=== PATIENT | female | born 1965 | race Hispanic/Latino ===

== ENCOUNTER 2017-05-08 21:41 | Emergency (ER) | payer OTHER, SELFPAY ==
[2017-05-08] MEDS ORDERED: DEXAMETHASONE SOD PHOSPHATE 10MG/ML 1ML VIAL ONE (22:19)
[2017-05-08] MEDS ORDERED: SODIUM CHLORIDE 0.9% 1000ML 1,000 ML IV ONE (22:19)
[2017-05-08] MEDS ORDERED: KETOROLAC TROMETHAMINE 30MG/ML ONE (22:20)
[2017-05-08 22:24] LABS: BASOPHILS % (AUTO) 0.6 % (0.0-5.0); EOSINOPHILS % (AUTO) 4.2 % (0.0-8.0); HEMATOCRIT 42.7 % (36-48); LYMPHOCYTES % (AUTO) 26.2 % (21.0-51.0); MEAN CORPUSCULAR HEMOGLOBIN 32.1 pg (27.0-33.0); MEAN CORPUSCULAR HGB CONC 33.7 g/dL (32.0-36.0); MEAN CORPUSCULAR VOLUME 95.2 fL (79-99); MONOCYTES % (AUTO) 7.7 % (3.0-13.0); NEUTROPHILS % (AUTO) 61.3 % (40.0-77.0); PLATELET COUNT (AUTO) 253 K/uL (130-400); RED BLOOD CELL COUNT(AUTO) 4.49 MIL/uL (4.00-5.50); RED CELL DISTRIBUTION WIDTH 14.3 % (11.0-15.5); WHITE BLOOD COUNT (AUTO) 8.1 K/uL (4.8-10.8)
[2017-05-08 22:36] LABS: CREATININE 0.7 mg/dL (0.5-1.5); POTASSIUM 4.2 mmol/L (3.5-5.1)
[2017-05-08 22:37] LABS: RAPID GROUP A STREP NEGATIVE (NEGATIVE)
[2017-05-08] MEDS ORDERED: CEFTRIAXONE SODIUM 1 GM ONE (23:07)
== END 2017-05-08 23:48 | disposition home or self-care (01) ==
LOC: EDH 21:41
DX: J02.0 Streptococcal pharyngitis (principal); R50.81 Fever presenting with conditions classified elsewhere
CPT/HCPCS: 36415; 80048; 85025; 87804 ×2; 87880; 96361; 96374; 96375; 99284; J0696; J1100; J1885; J7030

== ENCOUNTER 2018-08-28 04:02 | Emergency (ER) | payer OTHER, SELFPAY ==
[2018-08-28] MEDS ORDERED: LIDOCAINE HCL 2% JELLY 5 ML ONE (04:18)
[2018-08-28] MEDS ORDERED: HYDROCORTISONE 25 MG SUPPOSITORY PR ONE (04:32)
== END 2018-08-28 04:48 | disposition home or self-care (01) ==
LOC: EDH 04:02
DX: K64.9 Unspecified hemorrhoids (principal); Z90.49 Acquired absence of other specified parts of digestive tract; Z87.891 Personal history of nicotine dependence; Z98.890 Other specified postprocedural states

== ENCOUNTER 2020-04-11 22:16 | Inpatient (IN) | payer OTHER, SELFPAY ==
[~2020-04-11] VITALS: Ht 160 cm; Wt 139.7 kg
[2020-04-11] MEDS ORDERED: SODIUM CHLORIDE 0.9% 1000ML 1,000 ML IV ONE (23:17)
[2020-04-11] MEDS ORDERED: ACETAMINOPHEN 325 MG TAB ONE (23:18)
[2020-04-11 23:41] LABS: BASOPHILS % (AUTO) 0.1 % (0.0-5.0); EOSINOPHILS % (AUTO) 0.1 % (0.0-8.0); HEMATOCRIT 42.2 % (36-48); LYMPHOCYTES % (AUTO) 12.6 % (21.0-51.0); MEAN CORPUSCULAR HEMOGLOBIN 31.7 pg (27.0-33.0); MEAN CORPUSCULAR HGB CONC 32.9 g/dL (32.0-36.0); MEAN CORPUSCULAR VOLUME 96.1 fL (79-99); MONOCYTES % (AUTO) 6.2 % (3.0-13.0); NEUTROPHILS % (AUTO) 80.7 % (40.0-77.0); PLATELET COUNT (AUTO) 181 K/uL (130-400); RED BLOOD CELL COUNT(AUTO) 4.39 MIL/uL (4.00-5.50); RED CELL DISTRIBUTION WIDTH 13.9 % (11.0-15.5); WHITE BLOOD COUNT (AUTO) 6.9 K/uL (4.8-10.8)
[2020-04-11] MEDS ORDERED: DEXAMETHASONE SOD PHOSPHATE 10MG/ML 1ML VIAL ONE (23:50)
[2020-04-11] MEDS ORDERED: ONDANSETRON HCL 4 MG/2 ML VIAL ONE (23:50)
[2020-04-11] MEDS ORDERED: AZITHROMYCIN 500MG+NS 250ML 250 ML IV ONE (23:50)
[2020-04-11] MEDS ORDERED: MORPHINE SULFATE 4 MG/1ML SYG ONE (23:51)
[2020-04-11] MEDS ORDERED: CEFTRIAXONE SODIUM 1 GM ONE (23:51)
[2020-04-11 23:53] LABS: INR 1.07 (0.85-1.15); PROTHROMBIN TIME 11.4 SEC (9.6-11.6)
[2020-04-11 23:55] LABS: PARTIAL THROMBOPLASTIN TIME 30.5 SEC (26.3-35.5)
[2020-04-12 00:02] LABS: B-TYPE NATRIURETIC PEPTIDE 25 pg/mL (0-100)
[2020-04-12 00:06] LABS: CREATININE 0.8 mg/dL (0.5-1.5); POTASSIUM 3.8 mmol/L (3.5-5.1)
[2020-04-12 00:12] LABS: ALBUMIN 3.4 g/dL (3.5-5.0); BILIRUBIN,TOTAL 0.3 mg/dL (0.2-1.0); TOTAL PROTEIN, SERUM 7.4 g/dL (6.0-8.3)
[2020-04-12 00:28] LABS: APPEARANCE,URINE Clear (CLEAR); BILIRUBIN,URINE Negative (NEGATIVE); COLOR,URINE Yellow (YELLOW); GLUCOSE, URINE (UA) Negative (NEGATIVE); KETONES,URINE Negative (NEGATIVE); LEUKOCYTE ESTERASE ,URINE Negative (NEGATIVE); NITRATE,URINE Negative (NEGATIVE); OCCULT BLOOD,URINE Trace (NEGATIVE); PH,URINE 7.5 (5.0-8.0); PROTEIN,URINE Negative (NEGATIVE)
[2020-04-12 00:47] LABS: BACTERIA,URINE Rare /HPF (None Seen); SQUAMOUS EPITHELIAL CELL,UR 0-2 /HPF (0-2); WBC,URINE 0-1 /HPF (0-1)
[2020-04-12] MEDS ORDERED: ONDANSETRON HCL 4 MG/2 ML VIAL IV PRN (01:15)
[2020-04-12] MEDS: DOXYCYCLINE 100MG+NS 250ML IV SCH ×2 (01:45→13:45)
[2020-04-12] MEDS: DEXAMETHASONE SOD PHOSPHATE 4 MG/ML 1ML VIAL IVP SCH (01:45)
[2020-04-12] MEDS: CEFTRIAXONE SODIUM 1 GM IVP SCH ×2 (01:45→13:45)
[2020-04-12] MEDS ORDERED: ERGOCALCIFEROL (VITAMIN D2) 50,000 UNIT CAPSULE PO ONE (01:45)
[2020-04-12] MEDS ORDERED: PHARMACY COMMUNICATION MISC SCH ×3 (01:45→14:15)
[2020-04-12] MEDS ORDERED: DOXYCYCLINE 100MG+NS 250ML 250 ML IV ONE ×3 (02:38→21:29)
[2020-04-12] MEDS ORDERED: ASCORBIC ACID 500 MG TAB ONE (08:40)
[2020-04-12] MEDS ORDERED: ZINC SULFATE 220 CAPSULE ONE (08:41)
[2020-04-12] MEDS ORDERED: ACETYLCYSTEINE 600 MG CAPSULE ONE (08:41)
[2020-04-12] MEDS ORDERED: FAMOTIDINE/PF 20 MG/2 ML VIAL IV ONE (08:41)
[2020-04-12] MEDS: FAMOTIDINE/PF 20 MG/2 ML VIAL IV SCH ×2 (09:00→21:41)
[2020-04-12] MEDS: ZINC SULFATE 220 CAPSULE PO SCH (09:00)
[2020-04-12] MEDS: ACETYLCYSTEINE 600 MG CAPSULE PO SCH ×2 (09:00→21:41)
[2020-04-12] MEDS: ASCORBIC ACID 500 MG TAB PO SCH (09:00)
[2020-04-12 09:01] LABS: BASOPHILS % (AUTO) 0.2 % (0.0-5.0); EOSINOPHILS % (AUTO) 1.7 % (0.0-8.0); HEMATOCRIT 44.8 % (36-48); LYMPHOCYTES % (AUTO) 10.9 % (21.0-51.0); MEAN CORPUSCULAR HEMOGLOBIN 31.5 pg (27.0-33.0); MEAN CORPUSCULAR HGB CONC 31.5 g/dL (32.0-36.0); MEAN CORPUSCULAR VOLUME 100.2 fL (79-99); MONOCYTES % (AUTO) 2.8 % (3.0-13.0); NEUTROPHILS % (AUTO) 84.1 % (40.0-77.0); PLATELET COUNT (AUTO) 191 K/uL (130-400); RED BLOOD CELL COUNT(AUTO) 4.47 MIL/uL (4.00-5.50); RED CELL DISTRIBUTION WIDTH 14.2 % (11.0-15.5)
[2020-04-12] MEDS ORDERED: ACETAMINOPHEN 325 MG TAB ONE (09:37)
[2020-04-12] MEDS ORDERED: SODIUM CHLORIDE 0.9% 50 ML IV ONE (14:20)
[2020-04-12] MEDS ORDERED: CEFTRIAXONE SODIUM 1 GM ONE (14:20)
[2020-04-12] MEDS ORDERED: COMPOUND IV REFRIGERATED 1 EACH IVSOLN MISC PRN (16:00)
[2020-04-12] MEDS ORDERED: REMDESIVIR (EUA) 520 200 MG in SODIUM CHLORIDE 0.9% 250 ML IV ONE (16:00)
[2020-04-12] MEDS ORDERED: SODIUM CHLORIDE 0.9% 500ML 500 ML IV ONE (18:42)
[2020-04-12] MEDS: ACETAMINOPHEN 325 MG TAB PO PRN (22:21)
[2020-04-12 22:30] VITALS: BP 127/67
[2020-04-12 23:57] VITALS: BP 138/75
[2020-04-13] MEDS: KETOROLAC TROMETHAMINE 15MG/ML IV SCH
[2020-04-13] MEDS ORDERED: KETOROLAC TROMETHAMINE 15MG/ML ONE (00:05)
[2020-04-13] MEDS: DEXAMETHASONE SOD PHOSPHATE 4 MG/ML 1ML VIAL IVP SCH (01:09)
[2020-04-13] MEDS: CEFTRIAXONE SODIUM 1 GM IVP SCH ×2 (01:09→13:23)
[2020-04-13] MEDS: DOXYCYCLINE 100MG+NS 250ML IV SCH (01:09)
[2020-04-13] MEDS: ACETAMINOPHEN 325 MG TAB PO PRN ×2 (03:40→09:31)
[2020-04-13 04:14] VITALS: BP 143/73
[2020-04-13] MEDS ORDERED: PHARMACY COMMUNICATION MISC SCH (06:00)
[2020-04-13 06:50] LABS: BASOPHILS % (AUTO) 0.1 % (0.0-5.0); EOSINOPHILS % (AUTO) 1.9 % (0.0-8.0); HEMATOCRIT 42.1 % (36-48); LYMPHOCYTES % (AUTO) 19.8 % (21.0-51.0); MEAN CORPUSCULAR HEMOGLOBIN 31.6 pg (27.0-33.0); MEAN CORPUSCULAR HGB CONC 31.8 g/dL (32.0-36.0); MEAN CORPUSCULAR VOLUME 99.3 fL (79-99); MONOCYTES % (AUTO) 4.1 % (3.0-13.0); PLATELET COUNT (AUTO) 188 K/uL (130-400); RED BLOOD CELL COUNT(AUTO) 4.24 MIL/uL (4.00-5.50); RED CELL DISTRIBUTION WIDTH 13.9 % (11.0-15.5); WHITE BLOOD COUNT (AUTO) 6.9 K/uL (4.8-10.8)
[2020-04-13 07:33] LABS: BILIRUBIN,TOTAL 0.2 mg/dL (0.2-1.0); CREATININE 0.6 mg/dL (0.5-1.5); CRP QUANTITATIVE 67.2 mg/L (0.00-9.0); POTASSIUM 4.4 mmol/L (3.5-5.1); TOTAL PROTEIN, SERUM 7.1 g/dL (6.0-8.3)
[2020-04-13] MEDS: ACETYLCYSTEINE 600 MG CAPSULE PO SCH ×2 (09:30→20:23)
[2020-04-13] MEDS: ZINC SULFATE 220 CAPSULE PO SCH (09:30)
[2020-04-13] MEDS: ASCORBIC ACID 500 MG TAB PO SCH (09:31)
[2020-04-13] MEDS: FAMOTIDINE/PF 20 MG/2 ML VIAL IV SCH ×2 (09:31→20:23)
[2020-04-13 10:28] VITALS: BP 130/89
[2020-04-13 13:06] VITALS: BP 117/74
[2020-04-13] MEDS: DOXYCYCLINE 100MG+NS 250ML 250 ML IV SCH (13:49)
[2020-04-13] MEDS ORDERED: HYDROCODONE/ACETAMINOPHEN 5/325 MG TAB PO ONE (15:25)
[2020-04-13] MEDS ORDERED: TRAMADOL HCL 50 MG TABLET PO ONE (16:00)
[2020-04-13] MEDS: REMDESIVIR (EUA) 520 100 MG in SODIUM CHLORIDE 0.9% 250 ML IV SCH (16:52)
[2020-04-13 18:17] VITALS: BP 121/86
[2020-04-13 19:50] VITALS: BP 110/63
[2020-04-13 23:39] VITALS: BP 124/77
[2020-04-14] MEDS: KETOROLAC TROMETHAMINE 15MG/ML IV SCH
[2020-04-14] MEDS: CEFTRIAXONE SODIUM 1 GM IVP SCH ×2 (01:20→13:10)
[2020-04-14] MEDS: DEXAMETHASONE SOD PHOSPHATE 4 MG/ML 1ML VIAL IVP SCH (01:20)
[2020-04-14] MEDS: DOXYCYCLINE 100MG+NS 250ML 250 ML IV SCH ×2 (02:00→13:11)
[2020-04-14] MEDS: ACETAMINOPHEN 325 MG TAB PO PRN ×2 (03:51→09:02)
[2020-04-14 03:53] VITALS: BP 141/80
[2020-04-14 06:31] LABS: BASOPHILS % (AUTO) 0.1 % (0.0-5.0); EOSINOPHILS % (AUTO) 1.7 % (0.0-8.0); LYMPHOCYTES % (AUTO) 19.9 % (21.0-51.0); MEAN CORPUSCULAR HEMOGLOBIN 31.3 pg (27.0-33.0); MEAN CORPUSCULAR HGB CONC 31.4 g/dL (32.0-36.0); MEAN CORPUSCULAR VOLUME 99.5 fL (79-99); MONOCYTES % (AUTO) 3.3 % (3.0-13.0); NEUTROPHILS % (AUTO) 74.6 % (40.0-77.0); PLATELET COUNT (AUTO) 189 K/uL (130-400); RED BLOOD CELL COUNT(AUTO) 4.22 MIL/uL (4.00-5.50); WHITE BLOOD COUNT (AUTO) 6.9 K/uL (4.8-10.8)
[2020-04-14 06:51] LABS: BILIRUBIN,TOTAL 0.2 mg/dL (0.2-1.0); CREATININE 0.7 mg/dL (0.5-1.5); CRP QUANTITATIVE 22.6 mg/L (0.00-9.0); POTASSIUM 4.5 mmol/L (3.5-5.1); TOTAL PROTEIN, SERUM 7.1 g/dL (6.0-8.3)
[2020-04-14 07:20] VITALS: BP 121/72
[2020-04-14] MEDS: ZINC SULFATE 220 CAPSULE PO SCH (09:02)
[2020-04-14] MEDS: FAMOTIDINE/PF 20 MG/2 ML VIAL IV SCH ×2 (09:02→19:59)
[2020-04-14] MEDS: ACETYLCYSTEINE 600 MG CAPSULE PO SCH ×2 (09:02→20:00)
[2020-04-14] MEDS: ASCORBIC ACID 500 MG TAB PO SCH (09:03)
[2020-04-14 11:05] VITALS: BP 108/62
[2020-04-14] MEDS: ENOXAPARIN SODIUM 30 MG/0.3 ML SQ SCH (13:12)
[2020-04-14 15:24] VITALS: BP 114/62
[2020-04-14] MEDS: REMDESIVIR (EUA) 520 100 MG in SODIUM CHLORIDE 0.9% 250 ML IV SCH (16:00)
[2020-04-14 22:35] VITALS: BP 132/69
[2020-04-15] VITALS (7 sets, daily range): BP systolic 124–134; BP diastolic 51–85
[2020-04-15] MEDS: CEFTRIAXONE SODIUM 1 GM IVP SCH ×2 (01:56→13:54)
[2020-04-15] MEDS: DEXAMETHASONE SOD PHOSPHATE 4 MG/ML 1ML VIAL IVP SCH (01:56)
[2020-04-15] MEDS: DOXYCYCLINE 100MG+NS 250ML 250 ML IV SCH ×2 (01:56→13:54)
[2020-04-15] MEDS: ACETAMINOPHEN 325 MG TAB PO PRN ×2 (05:03→11:35)
[2020-04-15 06:26] LABS: BILIRUBIN,TOTAL 0.3 mg/dL (0.2-1.0); CREATININE 0.8 mg/dL (0.5-1.5); CRP QUANTITATIVE 13.1 mg/L (0.00-9.0); POTASSIUM 3.4 mmol/L (3.5-5.1); TOTAL PROTEIN, SERUM 6.6 g/dL (6.0-8.3)
[2020-04-15] MEDS ORDERED: POTASSIUM CHLORIDE 10MEQ/100ML 100 ML IV PRN (09:00)
[2020-04-15] MEDS ORDERED: LIDOCAINE HCL-MPF 1% 2ML VIAL IV PRN (09:00)
[2020-04-15] MEDS ORDERED: POTASSIUM CHLORIDE 10% ELIXIR 20 MEQ/15 ML UDCUP PO PRN (09:00)
[2020-04-15] MEDS: ACETYLCYSTEINE 600 MG CAPSULE PO SCH ×2 (09:25→19:56)
[2020-04-15] MEDS: ZINC SULFATE 220 CAPSULE PO SCH (09:26)
[2020-04-15] MEDS: ASCORBIC ACID 500 MG TAB PO SCH (09:26)
[2020-04-15] MEDS: FAMOTIDINE/PF 20 MG/2 ML VIAL IV SCH ×2 (09:26→19:56)
[2020-04-15] MEDS: GUAIFENESIN-DM 200/20 MG 10 ML PO PRN ×2 (09:27→16:37)
[2020-04-15] MEDS: ENOXAPARIN SODIUM 30 MG/0.3 ML SQ SCH (09:27)
[2020-04-15] MEDS: POTASSIUM CHLORIDE 20 MEQ ERTAB PO PRN (11:36)
[2020-04-15] MEDS: REMDESIVIR (EUA) 520 100 MG in SODIUM CHLORIDE 0.9% 250 ML IV SCH (16:25)
[2020-04-16] MEDS: DEXAMETHASONE SOD PHOSPHATE 4 MG/ML 1ML VIAL IVP SCH (01:02)
[2020-04-16] MEDS: CEFTRIAXONE SODIUM 1 GM IVP SCH ×2 (01:02→14:05)
[2020-04-16] MEDS: DOXYCYCLINE 100MG+NS 250ML 250 ML IV SCH ×2 (01:02→14:05)
[2020-04-16 03:46] VITALS: BP 128/76
[2020-04-16 05:18] LABS: BASOPHILS % (AUTO) 0.1 % (0.0-5.0); EOSINOPHILS % (AUTO) 0.1 % (0.0-8.0); HEMATOCRIT 43.9 % (36-48); MEAN CORPUSCULAR HEMOGLOBIN 31.3 pg (27.0-33.0); MEAN CORPUSCULAR HGB CONC 32.3 g/dL (32.0-36.0); MEAN CORPUSCULAR VOLUME 96.7 fL (79-99); MONOCYTES % (AUTO) 5.4 % (3.0-13.0); NEUTROPHILS % (AUTO) 72.8 % (40.0-77.0); PLATELET COUNT (AUTO) 226 K/uL (130-400); RED BLOOD CELL COUNT(AUTO) 4.54 MIL/uL (4.00-5.50); RED CELL DISTRIBUTION WIDTH 13.7 % (11.0-15.5); WHITE BLOOD COUNT (AUTO) 8.1 K/uL (4.8-10.8)
[2020-04-16 05:41] LABS: CARBON DIOXIDE 28 mmol/L (21-32); CHLORIDE 102 mmol/L (101-111); CREATININE 0.7 mg/dL (0.5-1.5); GLOMERULAR FILTR. RATE CALC 93 mL/min (>60); GLUCOSE,RANDOM 144 mg/dL (70-105); POTASSIUM 3.8 mmol/L (3.5-5.1); SODIUM SERUM 141 mmol/L (136-145); UREA NITROGEN, BLOOD 11 mg/dL (7-18)
[2020-04-16] MEDS: ACETAMINOPHEN 325 MG TAB PO PRN (05:56)
[2020-04-16 07:54] LABS: ALBUMIN 3.4 g/dL (3.5-5.0); BILIRUBIN,DIRECT 0.1 mg/dL (0.0-0.3); BILIRUBIN,TOTAL 0.3 mg/dL (0.2-1.0); TOTAL PROTEIN, SERUM 7.6 g/dL (6.0-8.3)
[2020-04-16 08:02] VITALS: BP 132/76
[2020-04-16] MEDS: ASCORBIC ACID 500 MG TAB PO SCH (08:59)
[2020-04-16] MEDS: ZINC SULFATE 220 CAPSULE PO SCH (08:59)
[2020-04-16] MEDS: FAMOTIDINE/PF 20 MG/2 ML VIAL IV SCH ×2 (08:59→20:01)
[2020-04-16] MEDS: ACETYLCYSTEINE 600 MG CAPSULE PO SCH ×2 (08:59→20:01)
[2020-04-16] MEDS: ENOXAPARIN SODIUM 30 MG/0.3 ML SQ SCH (09:00)
[2020-04-16 09:52] LABS: CREATINE KINASE, TOTAL 77 U/L (21-232); MYOGLOBIN 45 ng/mL (10-92); THYROID STIMULATING HORMONE 1.68 uIU/mL (0.36-3.74); TROPONIN I < 0.04 ng/mL (0.00-0.06)
[2020-04-16 12:00] VITALS: BP 127/73
[2020-04-16] MEDS: GUAIFENESIN-DM 200/20 MG 10 ML PO PRN (14:16)
[2020-04-16] MEDS: REMDESIVIR (EUA) 520 100 MG in SODIUM CHLORIDE 0.9% 250 ML IV SCH (15:58)
[2020-04-16 16:00] VITALS: BP 145/92
[2020-04-16 21:57] VITALS: BP 133/84
[2020-04-17 00:08] VITALS: BP 133/86
[2020-04-17] MEDS: DEXAMETHASONE SOD PHOSPHATE 4 MG/ML 1ML VIAL IVP SCH (01:52)
[2020-04-17] MEDS: DOXYCYCLINE 100MG+NS 250ML 250 ML IV SCH ×2 (01:52→13:26)
[2020-04-17] MEDS: CEFTRIAXONE SODIUM 1 GM IVP SCH ×2 (01:52→13:26)
[2020-04-17 03:50] VITALS: BP 121/69
[2020-04-17 05:03] LABS: BASOPHILS % (AUTO) 0.2 % (0.0-5.0); EOSINOPHILS % (AUTO) 1.1 % (0.0-8.0); HEMATOCRIT 41.9 % (36-48); LYMPHOCYTES % (AUTO) 33.8 % (21.0-51.0); MEAN CORPUSCULAR HEMOGLOBIN 31.5 pg (27.0-33.0); MEAN CORPUSCULAR HGB CONC 33.2 g/dL (32.0-36.0); NEUTROPHILS % (AUTO) 56.4 % (40.0-77.0); PLATELET COUNT (AUTO) 243 K/uL (130-400); RED BLOOD CELL COUNT(AUTO) 4.41 MIL/uL (4.00-5.50); RED CELL DISTRIBUTION WIDTH 13.5 % (11.0-15.5); WHITE BLOOD COUNT (AUTO) 8.5 K/uL (4.8-10.8)
[2020-04-17 05:17] LABS: CREATININE 0.6 mg/dL (0.5-1.5); POTASSIUM 3.6 mmol/L (3.5-5.1)
[2020-04-17 08:00] VITALS: BP 118/73
[2020-04-17] MEDS: ZINC SULFATE 220 CAPSULE PO SCH (08:33)
[2020-04-17] MEDS: ASCORBIC ACID 500 MG TAB PO SCH (08:33)
[2020-04-17] MEDS: GUAIFENESIN-DM 200/20 MG 10 ML PO PRN ×2 (08:34→13:30)
[2020-04-17] MEDS: ACETAMINOPHEN 325 MG TAB PO PRN (08:34)
[2020-04-17] MEDS: ACETYLCYSTEINE 600 MG CAPSULE PO SCH (08:34)
[2020-04-17] MEDS: ENOXAPARIN SODIUM 30 MG/0.3 ML SQ SCH (08:35)
[2020-04-17] MEDS: FAMOTIDINE/PF 20 MG/2 ML VIAL IV SCH (08:35)
[2020-04-17] MEDS: POTASSIUM CHLORIDE 20 MEQ ERTAB PO PRN ×2 (08:35→11:30)
[2020-04-17 10:01] VITALS: BP 118/73
[2020-04-17 17:28] VITALS: BP 126/73
[2020-04-17] MEDS ORDERED: APIX2.5T PO (17:40)
[2020-04-17] MEDS ORDERED: DEXA6TAB PO (17:40)
== END 2020-04-17 18:35 | disposition home or self-care (01) | DRG 177 ==
LOC: EDH 22:16 → EDHIP 22:17 → 4BH 04-12 21:40
PROVIDERS: ADMIT Hospitalist; ATTEND Hospitalist
PROC: XW13325 Transfusion of Convalescent Plasma (Nonautologous) into Peripheral Vein, Percutaneous Approach, New Technology Group 5 (ICD-10-PCS; principal; 2020-04-12)
PROC: XW033E5 Introduction of Remdesivir Anti-infective into Peripheral Vein, Percutaneous Approach, New Technology Group 5 (ICD-10-PCS; 2020-04-12)
DX: U07.1 COVID-19 (principal); J12.82 Pneumonia due to coronavirus disease 2019; J96.00 Acute respiratory failure, unspecified whether with hypoxia or hypercapnia; D68.59 Other primary thrombophilia; Z68.43 Body mass index [BMI] 50.0-59.9, adult; E66.01 Morbid (severe) obesity due to excess calories; R74.8 Abnormal levels of other serum enzymes; R00.1 Bradycardia, unspecified; Z90.49 Acquired absence of other specified parts of digestive tract
CPT/HCPCS: 36415; 71045; 80048; 80053; 80076; 81001; 82550; 82728; 82948; 83605; 83615; 83874; 83880; 84145; 84443; 84484; 85025; 85378; 85610; 85730; 86140; 86900; 86901; 86927; 87040; 87088; 87426; 87804; 93005; G0378; J0456; J0696; J1100; J1650; J1885; J2270; J2405; J3490; J7030; J7040; J7050

== ENCOUNTER 2020-04-24 11:37 | Inpatient (IN) | payer OTHER, SELFPAY ==
[~2020-04-24] VITALS: Ht 160 cm; Wt 138.3 kg
[~2020-04-24 11:37] MED LIST: APIX2.5T PO; DEXA6TAB PO
[2020-04-24 12:21] LABS: ABG BASE EXCESS 0.5 mmol/L (-2.0-3.0); ABG OXYGEN SATURATION 91.3 % (95.0-99.0); ABG PCO2 40 mmHg (32-45)
[2020-04-24] MEDS ORDERED: CEFTRIAXONE SODIUM 1 GM ONE (12:52)
[2020-04-24] MEDS ORDERED: DEXAMETHASONE SOD PHOSPHATE 4 MG/ML 5ML VIAL ONE ×2 (12:52→16:15)
[2020-04-24] MEDS ORDERED: AZITHROMYCIN 250 MG TABLET PO ONE (12:53)
[2020-04-24] MEDS ORDERED: ACETAMINOPHEN-CODEINE 300/30MG TAB ONE (12:53)
[2020-04-24 13:00] LABS: BASOPHILS % (AUTO) 0.2 % (0.0-5.0); EOSINOPHILS % (AUTO) 0.2 % (0.0-8.0); HEMATOCRIT 44.4 % (36-48); MEAN CORPUSCULAR HEMOGLOBIN 31.1 pg (27.0-33.0); MEAN CORPUSCULAR HGB CONC 33.1 g/dL (32.0-36.0); MEAN CORPUSCULAR VOLUME 93.9 fL (79-99); MONOCYTES % (AUTO) 5.6 % (3.0-13.0); NEUTROPHILS % (AUTO) 79.7 % (40.0-77.0); PLATELET COUNT (AUTO) 294 K/uL (130-400); RED BLOOD CELL COUNT(AUTO) 4.73 MIL/uL (4.00-5.50); RED CELL DISTRIBUTION WIDTH 13.8 % (11.0-15.5); WHITE BLOOD COUNT (AUTO) 9.4 K/uL (4.8-10.8)
[2020-04-24 13:14] LABS: INR 1.03 (0.85-1.15)
[2020-04-24 13:15] LABS: BILIRUBIN,TOTAL 0.3 mg/dL (0.2-1.0); CREATININE 0.7 mg/dL (0.5-1.5); POTASSIUM 4.2 mmol/L (3.5-5.1); TOTAL PROTEIN, SERUM 6.7 g/dL (6.0-8.3)
[2020-04-24 13:16] LABS: PARTIAL THROMBOPLASTIN TIME 25.8 SEC (26.3-35.5)
[2020-04-24 13:27] LABS: B-TYPE NATRIURETIC PEPTIDE 23 pg/mL (0-100)
[2020-04-24] MEDS ORDERED: LACTULOSE 20 GM/30 ML UDCUP PO PRN (15:15)
[2020-04-24] MEDS ORDERED: ALBUTEROL INHALER 90MCG/INH IH PRN (15:15)
[2020-04-24] MEDS ORDERED: ACETAMINOPHEN 325 MG TAB PO PRN ×2 (15:15)
[2020-04-24] MEDS ORDERED: ERGOCALCIFEROL (VITAMIN D2) 50,000 UNIT CAPSULE PO ONE (15:15)
[2020-04-24] MEDS ORDERED: ONDANSETRON HCL 4 MG/2 ML VIAL IV PRN (15:15)
[2020-04-24] MEDS ORDERED: DEXAMETHASONE SOD PHOSPHATE 4 MG/ML 1ML VIAL IVP SCH (15:15)
[2020-04-24 17:13] LABS: APPEARANCE,URINE Clear (CLEAR); BILIRUBIN,URINE Negative (NEGATIVE); COLOR,URINE Yellow (YELLOW); GLUCOSE, URINE (UA) Negative (NEGATIVE); KETONES,URINE Negative (NEGATIVE); LEUKOCYTE ESTERASE ,URINE Negative (NEGATIVE); NITRATE,URINE Negative (NEGATIVE); OCCULT BLOOD,URINE Negative (NEGATIVE); PH,URINE 6.5 (5.0-8.0); PROTEIN,URINE Negative (NEGATIVE); UROBILINOGEN,URINE 0.2 mg/dL (0.2-1.0)
[2020-04-24] MEDS ORDERED: DEXTROSE 50%-WATER 50 ML DISP.SYRIN IV PRN (19:45)
[2020-04-24] MEDS ORDERED: GLUCAGON 1MG KIT 1 MG ML IM PRN (19:45)
[2020-04-24] MEDS ORDERED: METHYLPREDNISOLONE SOD SUCC 125MG/2ML VIAL IVP SCH (19:45)
[2020-04-24] MEDS ORDERED: FAMOTIDINE 20MG TAB 20 MG TAB ONE (20:52)
[2020-04-24] MEDS ORDERED: METHYLPREDNISOLONE SOD SUCC 125MG/2ML VIAL ONE (20:52)
[2020-04-24] MEDS ORDERED: FAMOTIDINE 20MG TAB 20 MG TAB PO SCH (21:00)
[2020-04-24] MEDS ORDERED: INSULIN HUMULIN R 100 UNIT/ML 3ML ONE (21:12)
[2020-04-25 00:01] VITALS: BP 128/91
[2020-04-25 04:12] VITALS: BP 108/84
[2020-04-25 05:27] LABS: HEMATOCRIT 45.4 % (36-48); LYMPHOCYTES % (AUTO) 16.9 % (21.0-51.0); MEAN CORPUSCULAR HEMOGLOBIN 30.7 pg (27.0-33.0); MEAN CORPUSCULAR HGB CONC 31.7 g/dL (32.0-36.0); MEAN CORPUSCULAR VOLUME 96.8 fL (79-99); MONOCYTES % (AUTO) 1.9 % (3.0-13.0); PLATELET COUNT (AUTO) 305 K/uL (130-400); RED BLOOD CELL COUNT(AUTO) 4.69 MIL/uL (4.00-5.50); RED CELL DISTRIBUTION WIDTH 13.8 % (11.0-15.5); WHITE BLOOD COUNT (AUTO) 5.8 K/uL (4.8-10.8)
[2020-04-25 06:01] LABS: CREATININE 0.6 mg/dL (0.5-1.5); POTASSIUM 4.6 mmol/L (3.5-5.1)
[2020-04-25] MEDS: INSULIN HUMULIN R 100 UNIT/ML 3ML SQ SCH ×2 (06:07→12:15)
[2020-04-25 08:00] VITALS: BP 126/77
[2020-04-25] MEDS ORDERED: ZINC SULFATE 220 CAPSULE PO SCH (09:00)
[2020-04-25] MEDS ORDERED: ENOXAPARIN SODIUM 40 MG/0.4 ML SYRINGE SQ SCH (09:00)
[2020-04-25] MEDS ORDERED: ASCORBIC ACID 500 MG TAB PO SCH (09:00)
[2020-04-25 11:00] VITALS: BP 112/72
[2020-04-25] MEDS ORDERED: APIX2.5T PO (12:40)
== END 2020-04-25 00:30 | disposition home or self-care (01) | DRG 178 ==
LOC: EDH 11:37 → EDHIP 11:38 → 2AH 22:26
PROVIDERS: ADMIT Hospitalist; ATTEND Hospitalist
DX: U07.1 COVID-19 (principal); Z68.43 Body mass index [BMI] 50.0-59.9, adult; R06.03 Acute respiratory distress; R09.02 Hypoxemia; E66.01 Morbid (severe) obesity due to excess calories; E66.9 Obesity, unspecified; Z83.3 Family history of diabetes mellitus; Z82.49 Family history of ischemic heart disease and other diseases of the circulatory system; Z86.16 Personal history of COVID-19; Z87.01 Personal history of pneumonia (recurrent); Z90.49 Acquired absence of other specified parts of digestive tract
CPT/HCPCS: 36415; 36600; 71045; 80048; 80053; 81003; 82550; 82803; 82948; 83605; 83880; 84145; 84484; 85025; 85378; 85610; 85730; 87040; 87426; 87804; 87880; 93005; G0378; J0696; J1100; J1650; J1815; J2930; U0003

== ENCOUNTER → 2020-09-16 | Emergency (ER) | payer OTHER ==
[~2020-09-16] VITALS: Ht 160 cm; Wt 154.2 kg
[~2020-09-16] MED LIST changes: +IBUP-2070 PO; +KETOROLAC 30MG VIAL (30MG/ML) IM ONE; +MECL-160 PO; +PSEU120T62 PO
[2020-09-16 23:56] VITALS: BP 136/69
== END | disposition home or self-care (01) ==
LOC: EDH 21:30
DX: H66.92 Otitis media, unspecified, left ear (principal); E66.9 Obesity, unspecified; Z79.01 Long term (current) use of anticoagulants; Z98.890 Other specified postprocedural states; Z90.49 Acquired absence of other specified parts of digestive tract; Z68.44 Body mass index [BMI] 60.0-69.9, adult
CPT/HCPCS: 96372; 99283; J1885

== ENCOUNTER 2022-01-13 16:36 | Inpatient (IN) | payer OTHER ==
[~2022-01-13] VITALS: Ht 160 cm; Wt 138.5 kg
[~2022-01-13 16:36] MED LIST changes: -KETOROLAC 30MG VIAL (30MG/ML) IM ONE; +SULF1TAB42 PO; +TRAM50TA4 PO
[2022-01-13 16:57] LABS: BASOPHILS % (AUTO) 0.5 % (0.0-5.0); EOSINOPHILS % (AUTO) 2.7 % (0.0-8.0); HEMATOCRIT 42.3 % (36-48); LYMPHOCYTES % (AUTO) 19.6 % (21.0-51.0); MEAN CORPUSCULAR HEMOGLOBIN 31.4 pg (27.0-33.0); MEAN CORPUSCULAR HGB CONC 32.9 g/dL (32.0-36.0); MEAN CORPUSCULAR VOLUME 95.7 fL (79-99); MONOCYTES % (AUTO) 5.8 % (3.0-13.0); NEUTROPHILS % (AUTO) 71.3 % (40.0-77.0); PLATELET COUNT (AUTO) 245 K/uL (130-400); RED BLOOD CELL COUNT(AUTO) 4.42 MIL/uL (4.00-5.50); RED CELL DISTRIBUTION WIDTH 13.3 % (11.0-15.5); WHITE BLOOD COUNT (AUTO) 7.9 K/uL (4.8-10.8)
[2022-01-13 17:06] LABS: CREATININE 0.8 mg/dL (0.5-1.5); POTASSIUM 4.1 mmol/L (3.5-5.1)
[2022-01-13 17:13] LABS: ALBUMIN 3.8 g/dL (3.5-5.0); TOTAL PROTEIN, SERUM 7.6 g/dL (6.0-8.3)
[2022-01-13 19:23] LABS: APPEARANCE,URINE CLEAR (CLEAR); BILIRUBIN,URINE NEGATIVE (NEGATIVE); COLOR,URINE COLORLESS (YELLOW); GLUCOSE, URINE (UA) NEGATIVE (NEGATIVE); KETONES,URINE NEGATIVE (NEGATIVE); LEUKOCYTE ESTERASE ,URINE 75 Leu/uL (NEGATIVE); NITRATE,URINE NEGATIVE (NEGATIVE); OCCULT BLOOD,URINE LARGE (NEGATIVE); PROTEIN,URINE 10 mg/dL (NEGATIVE); UROBILINOGEN,URINE 0.2 mg/dL (0.2-1.0)
[2022-01-13] MEDS ORDERED: TAMSULOSIN HCL 0.4 MG CAP.ER.24H ONE (19:30)
[2022-01-13] MEDS ORDERED: ONDANSETRON 4MG INJ ONE (19:30)
[2022-01-13] MEDS ORDERED: KETOROLAC 30MG VIAL (30MG/ML) ONE (19:30)
[2022-01-13 19:39] LABS: BACTERIA,URINE MOD /HPF (None Seen); MUCUS,URINE FEW LPF (None Seen); SQUAMOUS EPITHELIAL CELL,UR RARE /HPF (0-2)
[2022-01-13] MEDS ORDERED: DiphenhydrAMINE HCL 50 MG/ML VIAL IV PRN (20:00)
[2022-01-13] MEDS ORDERED: KETOROLAC 30MG VIAL (30MG/ML) IVP ONE (20:00)
[2022-01-13] MEDS ORDERED: ONDANSETRON 4MG INJ IV PRN (20:00)
[2022-01-13] MEDS ORDERED: HYDROMORPHONE 1 MG INJ IV PRN (20:00)
[2022-01-13] MEDS ORDERED: LACTULOSE 20 GM/30 ML UDCUP PO PRN (20:00)
[2022-01-13] MEDS ORDERED: TAMSULOSIN HCL 0.4 MG CAP.ER.24H PO SCH (20:00)
[2022-01-13] MEDS ORDERED: ONDANSETRON 4MG INJ IVP ONE (20:00)
[2022-01-13] MEDS ORDERED: MAG/ALUM/SIMETH 30 ML UDCUP PO PRN (20:00)
[2022-01-13] MEDS ORDERED: ACETAMINOPHEN 325 MG TAB PO PRN (20:00)
[2022-01-13] MEDS ORDERED: HYDROCODONE/ACETAMINOPHEN 5/325 MG TAB PO PRN (20:00)
[2022-01-13] MEDS: 0.9%NACL 1000ML 1,000 ML IV SCH (20:09)
[2022-01-13] MEDS: FAMOTIDINE 20MG VIAL IV SCH (20:10)
[2022-01-13] MEDS: CEFTRIAXONE 1G VIAL IV SCH (20:12)
[2022-01-13 22:05] VITALS: BP 127/91
[2022-01-14 03:36] VITALS: BP 119/70
[2022-01-14] MEDS ORDERED: HYDROMORPHONE 0.5 MG SYG (0.5MG/0.5ML) ONE (04:15)
[2022-01-14] MEDS: 0.9%NACL 1000ML 1,000 ML IV SCH (04:16)
[2022-01-14] MEDS ORDERED: HYDROMORPHONE 0.5 MG SYG (0.5MG/0.5ML) IVP PRN (04:30)
[2022-01-14 05:18] LABS: HEMATOCRIT 39.7 % (36-48); MEAN CORPUSCULAR HEMOGLOBIN 31.8 pg (27.0-33.0); MEAN CORPUSCULAR VOLUME 96.4 fL (79-99); RED BLOOD CELL COUNT(AUTO) 4.12 MIL/uL (4.00-5.50); RED CELL DISTRIBUTION WIDTH 13.5 % (11.0-15.5)
[2022-01-14 05:31] LABS: CREATININE 0.8 mg/dL (0.5-1.5); POTASSIUM 3.5 mmol/L (3.5-5.1)
[2022-01-14 07:00] VITALS: BP 145/75
[2022-01-14] MEDS: FAMOTIDINE 20MG VIAL IV SCH ×2 (09:03→20:45)
[2022-01-14] MEDS: TAMSULOSIN HCL 0.4 MG CAP.ER.24H PO SCH (09:03)
[2022-01-14] MEDS: KETOROLAC 15MG/ML VIAL (15MG/ML) IV PRN (09:14)
[2022-01-14 12:00] VITALS: BP 135/74
[2022-01-14] MEDS ORDERED: MORPHINE 2 MG SYG IVP PRN (12:30)
[2022-01-14] MEDS ORDERED: IOHEXOL 350 MG/ML 100ML INFUS..BTL IV ONE (14:31)
[2022-01-14 16:00] VITALS: BP 135/77
[2022-01-14] MEDS ORDERED: NS-20 MEQ KCL 1000ML 1,000 ML IV ONE (20:28)
[2022-01-14] MEDS ORDERED: POTASSIUM CHLORIDE 20MEQ/10ML 0 MEQ in 0.9%NACL 1000ML 1,000 ML IV SCH ×4 (20:30)
[2022-01-14] MEDS ORDERED: POTASSIUM CHLORIDE 20MEQ/100ML 100 ML IV PRN ×2 (20:30)
[2022-01-14] MEDS ORDERED: POTASSIUM CHLORIDE 10% ELIXIR 20 MEQ/15 ML UDCUP PO PRN (20:30)
[2022-01-14] MEDS ORDERED: LIDOCAINE HCL-MPF 1% 2ML VIAL IV PRN ×2 (20:30)
[2022-01-14] MEDS ORDERED: KCL 20 MEQ ERTAB PO PRN (20:30)
[2022-01-14 20:31] VITALS: BP 117/80
[2022-01-14] MEDS: ACETAMINOPHEN 325 MG TAB PO PRN (20:45)
[2022-01-14] MEDS: CEFTRIAXONE 1G VIAL IV SCH (20:45)
[2022-01-14] MEDS ORDERED: PHARMACY COMMUNICATION MISC SCH (22:30)
[2022-01-14 23:40] VITALS: BP 113/55
[2022-01-15] MEDS: KETOROLAC 15MG/ML VIAL (15MG/ML) IV PRN ×2 (00:07→16:58)
[2022-01-15 03:34] VITALS: BP 113/65
[2022-01-15] MEDS ORDERED: NS-20 MEQ KCL 1000ML 1,000 ML IV ONE (04:50)
[2022-01-15 05:08] LABS: BASOPHILS % (AUTO) 0.5 % (0.0-5.0); EOSINOPHILS % (AUTO) 2.3 % (0.0-8.0); HEMATOCRIT 39.3 % (36-48); LYMPHOCYTES % (AUTO) 18.5 % (21.0-51.0); MEAN CORPUSCULAR HEMOGLOBIN 31.7 pg (27.0-33.0); MEAN CORPUSCULAR HGB CONC 32.1 g/dL (32.0-36.0); MEAN CORPUSCULAR VOLUME 98.7 fL (79-99); MONOCYTES % (AUTO) 7.8 % (3.0-13.0); NEUTROPHILS % (AUTO) 70.8 % (40.0-77.0); PLATELET COUNT (AUTO) 200 K/uL (130-400); RED BLOOD CELL COUNT(AUTO) 3.98 MIL/uL (4.00-5.50); RED CELL DISTRIBUTION WIDTH 13.6 % (11.0-15.5); WHITE BLOOD COUNT (AUTO) 7.7 K/uL (4.8-10.8)
[2022-01-15 05:20] LABS: CREATININE 0.8 mg/dL (0.5-1.5); CRP QUANTITATIVE 74.6 mg/L (0.00-9.0); POTASSIUM 4.2 mmol/L (3.5-5.1)
[2022-01-15 07:00] VITALS: BP 124/60
[2022-01-15] MEDS: TAMSULOSIN HCL 0.4 MG CAP.ER.24H PO SCH (10:45)
[2022-01-15] MEDS: FAMOTIDINE 20MG VIAL IV SCH ×2 (10:45→20:44)
[2022-01-15 12:29] VITALS: BP 144/70
[2022-01-15 16:00] VITALS: BP 140/35
[2022-01-15] MEDS: POTASSIUM CHLORIDE 20MEQ/10ML 20 MEQ in 0.9%NACL 1000ML 1,000 ML IV SCH (19:17)
[2022-01-15 20:01] VITALS: BP 138/69
[2022-01-15] MEDS: CEFTRIAXONE 1G VIAL IV SCH (20:44)
[2022-01-16 00:06] VITALS: BP 139/73
[2022-01-16 03:57] VITALS: BP 146/84
[2022-01-16] MEDS: POTASSIUM CHLORIDE 20MEQ/10ML 20 MEQ in 0.9%NACL 1000ML 1,000 ML IV SCH (06:06)
[2022-01-16 07:15] VITALS: BP 144/79
[2022-01-16 08:14] LABS: BASOPHILS % (AUTO) 0.7 % (0.0-5.0); EOSINOPHILS % (AUTO) 4.6 % (0.0-8.0); HEMATOCRIT 37.7 % (36-48); LYMPHOCYTES % (AUTO) 27.7 % (21.0-51.0); MEAN CORPUSCULAR HEMOGLOBIN 31.5 pg (27.0-33.0); MEAN CORPUSCULAR HGB CONC 32.4 g/dL (32.0-36.0); MEAN CORPUSCULAR VOLUME 97.4 fL (79-99); MONOCYTES % (AUTO) 9.8 % (3.0-13.0); PLATELET COUNT (AUTO) 199 K/uL (130-400); RED BLOOD CELL COUNT(AUTO) 3.87 MIL/uL (4.00-5.50); RED CELL DISTRIBUTION WIDTH 13.7 % (11.0-15.5); WHITE BLOOD COUNT (AUTO) 6.1 K/uL (4.8-10.8)
[2022-01-16 08:39] LABS: ALBUMIN 2.9 g/dL (3.5-5.0); CREATININE 0.7 mg/dL (0.5-1.5); CRP QUANTITATIVE 47.4 mg/L (0.00-9.0); MAGNESIUM 2.1 mg/dL (1.80-2.40); POTASSIUM 4.2 mmol/L (3.5-5.1); THYROID STIMULATING HORMONE 2.65 uIU/mL (0.36-3.74); TOTAL PROTEIN, SERUM 6.5 g/dL (6.0-8.3)
[2022-01-16 09:32] LABS: ERYTHROCYTE SEDIMENTATION RATE 25 MM/HR (0-30)
[2022-01-16] MEDS: FAMOTIDINE 20MG VIAL IV SCH ×2 (09:53→19:46)
[2022-01-16] MEDS: TAMSULOSIN HCL 0.4 MG CAP.ER.24H PO SCH (09:53)
[2022-01-16 11:36] VITALS: BP 142/76
[2022-01-16] MEDS: KETOROLAC 15MG/ML VIAL (15MG/ML) IV PRN (12:02)
[2022-01-16 16:53] VITALS: BP 123/70
[2022-01-16] MEDS: CEFTRIAXONE 1G VIAL IV SCH (19:46)
[2022-01-16 20:08] VITALS: BP 146/78
[2022-01-17 00:02] VITALS: BP 161/79
[2022-01-17 03:59] VITALS: BP 142/71
[2022-01-17 05:13] LABS: BASOPHILS % (AUTO) 0.3 % (0.0-5.0); HEMATOCRIT 38.6 % (36-48); MEAN CORPUSCULAR HEMOGLOBIN 31.8 pg (27.0-33.0); MEAN CORPUSCULAR HGB CONC 33.2 g/dL (32.0-36.0); MONOCYTES % (AUTO) 9.8 % (3.0-13.0); NEUTROPHILS % (AUTO) 53.6 % (40.0-77.0); PLATELET COUNT (AUTO) 207 K/uL (130-400); RED BLOOD CELL COUNT(AUTO) 4.02 MIL/uL (4.00-5.50); RED CELL DISTRIBUTION WIDTH 13.3 % (11.0-15.5); WHITE BLOOD COUNT (AUTO) 6.7 K/uL (4.8-10.8)
[2022-01-17 05:26] LABS: CREATININE 0.7 mg/dL (0.5-1.5); POTASSIUM 4.1 mmol/L (3.5-5.1)
[2022-01-17 06:30] LABS: MAGNESIUM 2.1 mg/dL (1.80-2.40); THYROID STIMULATING HORMONE 2.68 uIU/mL (0.36-3.74)
[2022-01-17] MEDS ORDERED: IOHEXOL 350 MG/ML 100ML INFUS..BTL IV ONE (07:09)
[2022-01-17 09:10] VITALS: BP 154/91
[2022-01-17] MEDS: FAMOTIDINE 20MG VIAL IV SCH ×2 (09:38→20:11)
[2022-01-17] MEDS: TAMSULOSIN HCL 0.4 MG CAP.ER.24H PO SCH (09:38)
[2022-01-17 12:07] VITALS: BP 139/79
[2022-01-17 15:21] VITALS: BP 142/78
[2022-01-17 20:00] VITALS: BP 156/86
[2022-01-17] MEDS: ACETAMINOPHEN 325 MG TAB PO PRN (20:11)
[2022-01-17] MEDS: CEFTRIAXONE 1G VIAL IV SCH (20:11)
[2022-01-17 20:31] LABS: ABG BASE EXCESS 3.9 mmol/L (-2.0-3.0); ABG HCO3 28.3 mmol/L (21.0-28.0); ABG OXYGEN SATURATION 94.1 % (95.0-99.0); ABG PCO2 42 mmHg (32-45)
[2022-01-18] VITALS (7 sets, daily range): BP systolic 118–150; BP diastolic 58–89
[2022-01-18] MEDS: TAMSULOSIN HCL 0.4 MG CAP.ER.24H PO SCH (09:18)
[2022-01-18] MEDS: FAMOTIDINE 20MG VIAL IV SCH ×2 (09:18→20:31)
[2022-01-18] MEDS ORDERED: IOHEXOL 350 MG/ML 100ML INFUS..BTL IV ONE (12:28)
[2022-01-18] MEDS: HYDROCORTISONE 2.5% CREAM 28G TP SCH ×2 (15:26→20:40)
[2022-01-18] MEDS: CEFTRIAXONE 1G VIAL IV SCH (20:30)
[2022-01-19 03:58] VITALS: BP 136/67
[2022-01-19 07:21] VITALS: BP 123/65
[2022-01-19] MEDS ORDERED: CEFU500T67 PO (07:25)
[2022-01-19] MEDS: FAMOTIDINE 20MG VIAL IV SCH (08:29)
[2022-01-19] MEDS: TAMSULOSIN HCL 0.4 MG CAP.ER.24H PO SCH (08:29)
[2022-01-19] MEDS: HYDROCORTISONE 2.5% CREAM 28G TP SCH (08:31)
== END 2022-01-19 12:05 | disposition home or self-care (01) | DRG 690 ==
LOC: EDH 16:36 → OBSVTOIN 16:37 → EDHIP 16:37 → 3BH 21:56
PROVIDERS: ADMIT Hospitalist; ATTEND Hospitalist
DX: N13.6 Pyonephrosis (principal); Z68.43 Body mass index [BMI] 50.0-59.9, adult; E66.2 Morbid (severe) obesity with alveolar hypoventilation; Z20.822 Contact with and (suspected) exposure to COVID-19; K21.9 Gastro-esophageal reflux disease without esophagitis; E66.01 Morbid (severe) obesity due to excess calories; R00.1 Bradycardia, unspecified; G43.909 Migraine, unspecified, not intractable, without status migrainosus; Z83.3 Family history of diabetes mellitus; Z87.442 Personal history of urinary calculi
CPT/HCPCS: 36415; 36600; 71045; 74176; 74400; 75574; 80048; 80053; 81001; 82360; 82435; 82533; 82803; 82947; 83036; 83605; 83690; 83735; 84132; 84145; 84295; 84443; 84484; 85018; 85025; 85027; 85651; 86140; 87077; 87088; 87186; 87635; 87804; 93005; 93306; 94660; G0378; J0696; J1170; J1885; J2405; J3480; J3490; J7030; Q9967

== ENCOUNTER 2023-11-20 09:29 | Emergency (ER) | payer SELFPAY ==
[~2023-11-20] VITALS: Ht 160 cm; Wt 131.5 kg
[~2023-11-20 09:29] MED LIST changes: -APIX2.5T PO; +CEFU500T67 PO; -DEXA6TAB PO; -IBUP-2070 PO; -MECL-160 PO; -PSEU120T62 PO; -SULF1TAB42 PO; -TRAM50TA4 PO
[2023-11-20 09:31] VITALS: BP 153/50; PULSE 50; RESP 18
[2023-11-20 10:10] LABS: BASOPHILS # (AUTO) 0.02 K/uL (0.00-0.20); BASOPHILS % (AUTO) 0.4 % (0.0-5.0); EOSINOPHILS # (AUTO) 0.15 K/uL (0.00-0.70); EOSINOPHILS % (AUTO) 3.1 % (0.0-8.0); HEMATOCRIT 43.5 % (36-48); IMMATURE GRANULOCYTE ABSOLUTE 0.01 K/uL (0-1); LYMPHOCYTES # (AUTO) 1.4 K/uL (1.0-4.8); LYMPHOCYTES % (AUTO) 29.1 % (21.0-51.0); MEAN CORPUSCULAR HEMOGLOBIN 31.7 pg (27.0-33.0); MEAN CORPUSCULAR HGB CONC 32.6 g/dL (32.0-36.0); MEAN CORPUSCULAR VOLUME 97.1 fL (79-99); MONOCYTES # (AUTO) 0.5 K/uL (0.1-1.0); MONOCYTES % (AUTO) 10.5 % (3.0-13.0); NEUTROPHILS # (AUTO) 2.8 K/uL (1.8-7.7); NEUTROPHILS % (AUTO) 56.7 % (40.0-77.0); PLATELET COUNT (AUTO) 214 K/uL (130-400); RED BLOOD CELL COUNT(AUTO) 4.48 MIL/uL (4.00-5.50); RED CELL DISTRIBUTION WIDTH 13.4 % (11.0-15.5); WHITE BLOOD COUNT (AUTO) 4.9 K/uL (4.8-10.8)
[2023-11-20 10:26] LABS: CREATININE 0.9 mg/dL (0.5-1.0); POTASSIUM 4.6 mmol/L (3.5-5.1)
[2023-11-20] MEDS: 0.9%NACL 1000ML 1,000 ML IV ONE (10:30)
[2023-11-20] MEDS: KETOROLAC 15MG/ML VIAL (15MG/ML) IV ONE (10:31)
[2023-11-20] MEDS: DiphenhydrAMINE HCL 50 MG/ML VIAL IV ONE (10:31)
[2023-11-20] MEDS: METOCLOPRAMIDE 10 MG/2 ML VIAL IVP ONE (10:31)
[2023-11-20 10:49] LABS: SARS-CoV-2, RNA, NAAT NEGATIVE SARS CoV-2 (NEGATIVE)
[2023-11-20 12:31] LABS: INFLUENZA TYPE A Negative For Type A (NEGATIVE); INFLUENZA TYPE B Negative For Type B (NEGATIVE)
[2023-11-20 13:26] LABS: APPEARANCE,URINE CLEAR (CLEAR); BILIRUBIN,URINE NEGATIVE (NEGATIVE); COLOR,URINE LIGHT-YELLOW (YELLOW); GLUCOSE, URINE (UA) NEGATIVE (NEGATIVE); KETONES,URINE NEGATIVE (NEGATIVE); LEUKOCYTE ESTERASE ,URINE 250 Leu/uL (NEGATIVE); NITRATE,URINE 2+ (NEGATIVE); OCCULT BLOOD,URINE NEGATIVE (NEGATIVE); PROTEIN,URINE NEGATIVE (NEGATIVE); UROBILINOGEN,URINE 0.2 mg/dL (0.2-1.0)
[2023-11-20 13:35] LABS: ADD UA MICROSCOPIC YES
[2023-11-20 13:50] LABS: BACTERIA,URINE MOD /HPF (None Seen); MUCUS,URINE RARE LPF (None Seen); RBC,URINE 0-1 /HPF (0-1); SQUAMOUS EPITHELIAL CELL,UR RARE /HPF (0-2)
[2023-11-20] MEDS: 0.9% NACL 500ML IV.SOLN 500 ML IV ONE (13:56)
[2023-11-20] MEDS: mecliZINE HCL 25 MG TABLET PO ONE (13:56)
[2023-11-20] MEDS ORDERED: NITR100C PO (14:00)
[2023-11-20] MEDS ORDERED: ONDA-243 PO (14:00)
[2023-11-20] MEDS: cefTRIAXone 1G VIAL IVPB ONE (14:13)
[2023-11-20] MEDS: HYDROMORPHONE 0.5 MG SYG (0.5MG/0.5ML) IVP ONE (14:14)
== END 2023-11-20 15:15 | disposition home or self-care (01) ==
LOC: EDH 09:29
DX: N39.0 Urinary tract infection, site not specified (principal); E86.0 Dehydration; Z90.49 Acquired absence of other specified parts of digestive tract; Z88.2 Allergy status to sulfonamides; Z79.899 Other long term (current) drug therapy; Z20.822 Contact with and (suspected) exposure to COVID-19
CPT/HCPCS: 99284; 96365; 96375; 96361; 87635; 84484; 80048; 85025; 87086 ×2; 87186; 87804 ×2; 81001; 36415; 93005; J1200; J7030; J0696; J2765; J1885; J1170

== ENCOUNTER 2024-05-22 13:47 | Emergency (ER) | payer SELFPAY ==
[~2024-05-22] VITALS: Ht 162.6 cm; Wt 136.1 kg
[~2024-05-22 13:47] MED LIST changes: +NITR100C PO; +ONDA-243 PO
--- NOTE | 2024-05-22 14:17 | ERN ---
ED Note History of Present Illness Stated Complaint: ABDOMINAL PAIN,MULTIPLE COMPLAINTS Chief Complaint: Abdominal Pain Time Seen by MD: 13:53 Dictation: The patient is a 58-year-old female patient with a medical history that includes morbid obesity, ovarian cancer, gastritis, migraines, and nephrolithiasis presented to the emergency department with primary complaints of pain in the left lumbar region. The patient indicated that the onset of her symptoms occurred today, characterized by sudden and excruciating sharp pain in the left lumbar area, rated at 8 out of 10, with no identifiable factors that relieve or exacerbate the pain. Additionally, she reported experiencing chills. The patient has a prior history of similar symptoms associated with a diagnosis of left nephrolithiasis but has not received any treatment for this condition previously. Currently, she expresses concern that the stone may have increased in size or become lodged. She denies experiencing hematuria, fever, urinary urgency, burning sensations, constipation, or diarrhea. Allergies: Coded Allergies: Sulfa (Sulfonamide Antibiotics) (Unverified Allergy, Unknown, 01/13/22) Home Meds Active Scripts Acetaminophen with Codeine (Acetaminophen-Cod #3 Tablet) 300 Mg-30 Mg Tablet, 1 TAB PO Q6HPRN PRN for pain for 5 Days, #20 TAB 0 Refills Prov:PARESH GAMBLE DO 05/22/24 Cephalexin (Cephalexin) 500 Mg Tablet, 1 TAB PO BID for 7 Days, #14 TAB 0 Refills Prov:RENAY CASTRO MD 05/22/24 Naproxen (Naproxen) 500 Mg Tablet, 1 TAB PO BID for pain for 10 Days, #20 TAB 0 Refills Prov:RENAY CASTRO MD 05/22/24 Nitrofurantoin Macrocrystal (Nitrofurantoin) 100 Mg Capsule, 100 MG PO BID for 7 Days, #14 CAP 0 Refills Prov:ANGELINA MENDOZA NP 11/20/23 Ondansetron (Ondansetron Odt) 4 Mg Tab.rapdis, 4 MG PO Q6HPRN PRN for nausea, #15 TAB 0 Refills Prov:ANGELINA MENDOZA NP 11/20/23 Cefuroxime Axetil (Cefuroxime) 500 Mg Tablet, 500 MG PO BID for 5 Days, #10 TAB Prov:KATRIN DE LA CRUZ NP 01/19/22 Past Medical History Past Medical History: Cancer, Other Additional Past Medical Hx: BRADYCARDIA Surgical History: Cholecystectomy Surgical History Other: RT OVARIAN CA REMOVAL Social History: Negative Review of System Dictation REVIEW OF SYSTEMS CONSTITUTIONAL: Denies fevers, chills, or night sweats. No unintentional weight loss reported. NEUROLOGICAL: Denies headache, amaurosis fugax, motor weakness, sensory deficit, vertigo/spinning sensation, gait abnormalities, or tremors. ENT: No hearing loss, otalgia, otorrhea, rhinitis, rhinorrhea, hoarseness, or sore throat. CARDIOVASCULAR: Denies any exertional angina, dyspnea on exertion, orthopnea, paroxysmal nocturnal dyspnea, palpitations, life-threatening arrhythmias, claudication. PULMONARY: Denies any shortness of breath, cough, phlegm/sputum, hemoptysis, pleuritic chest pain. SLEEP: Denies morning headaches, daytime somnolence or napping. Denies difficulty falling asleep, staying asleep, waking from sleep. Denies knowledge of snoring. GASTROINTESTINAL: Complains of nausea, Denies any type of dysphagia to either liquids or solids. Denies vomiting, pyrosis, early satiety, abdominal pain, diarrhea, constipation, or changes in stool consistency or caliber. Denies coffee-ground emesis, hematemesis, hematochezia, or melanotic stools. GENITOURINARY: Complaints of left lumbar pain, sharp shooting, 8/10, Denies frequency, urgency, nocturia, hematuria or incontinence (Storage/Irritative symptoms.) Low urinary stream, straining to void, urinary intermittency or hesitancy, splitting of the voiding stream, terminal dribbling. ENDOCRINOLOGIC: Denies polyuria, polydipsia, polyphagia or heat/cold intolerances. HEMATOLOGIC: Denies thrombophilia/previous clots, or coagulopathy/bleeding disorders. ONCOLOGIC: Denies personal history of malignancy. DERMATOLOGIC: Denies rashes or pruritus. PSYCHIATRIC: Denies any suicidal or homicidal ideation. Denies hallucinations. Initial Vital Sign VS Vital Signs Date Time Temp Pulse Resp B/P (MAP) Pulse Ox O2 Delivery O2 Flow Rate FiO2 05/22/24 14:19 97.9 66 20 161/89 99 Room Air 0 05/22/24 16:41 21 Physical Exam Dictation PHYSICAL EXAM GENERAL APPEARANCE: The patient is awake, alert, and oriented, in no acute cardiopulmonary distress. NEUROLOGICAL: Cranial nerves II-XII grossly intact. Motor is 5/5 in bilateral upper and lower extremities proximal to distal. No sensory deficits. HEENT: Face is symmetric. Pupils are equal and reactive. Extraocular movements are intact. NECK: Supple. No JVD. No thyromegaly. No submental, submandibular, pre- /postauricular, occipital or supraclavicular lymphadenopathy. CHEST: Normal chest expansion. No Telemetry. LUNGS: Absence of any rales, rhonchi or any wheezing. CARDIOVASCULAR: Regular. S1 and S2 normal. No appreciable rubs, murmurs or gallops. ABDOMEN: Soft, nontender, and nondistended. There is no rebound, voluntary guarding, or rigidity. : Deferred. No Hooper. EXTREMITIES: Non-edematous and not cyanotic. No clubbing. Good capillary refill. SKIN: No skin breakdown. Results (Laboratory/Radiology) Laboratory/Radiology Laboratory Tests Test 05/22/24 14:19 05/22/24 16:19 05/22/24 17:27 Urine Color COLORLESS (YELLOW) Urine Appearance CLEAR (CLEAR) Urine pH 6.5 (5.0-8.0) Urine Specific Parks 1.004 (1.001-1.031) Urine Protein NEGATIVE mg/dL (NEGATIVE) Urine Glucose (UA) NEGATIVE mg/dL (NEGATIVE) Urine Ketones NEGATIVE mg/dL (NEGATIVE) Urine Occult Blood NEGATIVE (NEGATIVE) Urine Nitrate NEGATIVE (NEGATIVE) Urine Bilirubin NEGATIVE mg/dL (NEGATIVE) Urine Urobilinogen 0.2 mg/dL (0.2-1.0) Urine Leukocyte Esterase 250 Bettye/uL (NEGATIVE) H Urine RBC 0-1 /HPF (0-1) Urine WBC 2-5 /HPF (0-1) H Urine Squamous Epithelial Cells RARE /HPF (0-2) Urine Bacteria RARE /HPF (None Seen) White Blood Count 7.9 K/uL (4.8-10.8) Red Blood Count 4.71 MIL/uL (4.00-5.50) Hemoglobin 14.6 g/dL (12.0-16.0) Hematocrit 44.7 % (36-48) Mean Corpuscular Volume 94.9 fL (79-99) Mean Corpuscular Hemoglobin 31.0 pg (27.0-33.0) Mean Corpuscular Hemoglobin Concent 32.7 g/dL (32.0-36.0) Red Cell Distribution Width 13.7 % (11.0-15.5) Platelet Count 263 K/uL (130-400) Mean Platelet Volume 12.2 fL (7.5-10.5) H Immature Granulocyte % (Auto) 0.3 % (0-1) Neutrophils (%) (Auto) 58.8 % (40.0-77.0) Lymphocytes (%) (Auto) 27.5 % (21.0-51.0) Monocytes (%) (Auto) 7.3 % (3.0-13.0) Eosinophils (%) (Auto) 5.3 % (0.0-8.0) Basophils (%) (Auto) 0.8 % (0.0-5.0) Neutrophils # (Auto) 4.6 K/uL (1.8-7.7) Lymphocytes # (Auto) 2.2 K/uL (1.0-4.8) Monocytes # (Auto) 0.6 K/uL (0.1-1.0) Eosinophils # (Auto) 0.42 K/uL (0.00-0.70) Basophils # (Auto) 0.06 K/uL (0.00-0.20) Absolute Immature Granulocyte (auto 0.02 K/uL (0-1) Nucleated Red Blood Cells 0.0 % (0.0-0.19) Sodium Level 139 mmol/L (136-145) Potassium Level 4.1 mmol/L (3.5-5.1) Chloride Level 103 mmol/L (101-111) Carbon Dioxide Level 33 mmol/L (21-32) H Blood Urea Nitrogen 12 mg/dL (7-18) Creatinine 0.7 mg/dL (0.5-1.0) Glomerular Filtration Rate Calc 100 mL/min (>90) Random Glucose 103 mg/dL (70-105) Total Calcium 8.5 mg/dL (8.5-10.1) ED Course ED Course Orders Procedure Category Date Status Time Cbc With Differential LAB 05/22/24 Complete 14:13 Basic Metabolic Panel LAB 05/22/24 Complete 14:13 Urinalysis Profile LAB 05/22/24 Complete 14:13 Ct Abdomen/Pelvis W/O CT 05/22/24 Resulted Contrast 14:13 Ondansetron 4mg Inj PHA 05/22/24 Complete (Zofran 4mg Inj) 14:30 Ketorolac PHA 05/22/24 Complete Tromethamine 15mg/Ml 14:30 Culture Urine GENTRY 05/22/24 Complete 14:51 Ceftriaxone 1g Vial PHA 05/22/24 Complete (Rocephine 1g Inj) 15:30 Hydromorphone 1 Mg PHA 05/22/24 Complete Inj (Dilaudid 1mg Inj 16:30 0.9% Nacl 500ml PHA 05/22/24 Complete Iv.Soln (Ns 500ml 17:00 Current Medications Medications (Trade) Dose Ordered Sig/Brittnee Route PRN Reason Start Time Stop Time Status Last Admin Dose Admin Ceftriaxone Sodium (ROCEphine 1G INJ) 1 gm ONCE ONCE IVPB 05/22/24 15:30 05/22/24 15:31 DC 05/22/24 16:26 Hydromorphone HCl (DiLAUDid 1MG INJ) 2 mg ONCE ONCE IVP 05/22/24 16:30 05/22/24 16:31 DC 05/22/24 16:31 Ketorolac Tromethamine (toRADol) 15 mg ONCE ONCE IM 05/22/24 14:30 05/22/24 14:31 DC 05/22/24 16:27 Ondansetron HCl (zoFRAN 4MG INJ) 4 mg ONCE ONCE IVP 05/22/24 14:30 05/22/24 14:31 DC 05/22/24 16:27 Sodium Chloride 500 ml @ 0 mls/hr ONCE ONCE IV 05/22/24 17:00 05/22/24 17:03 DC Vital Signs Date Time Temp Pulse Resp B/P (MAP) Pulse Ox O2 Delivery O2 Flow Rate FiO2 05/22/24 19:15 55 17 122/71 96 Room Air* 0 21 05/22/24 17:24 72 17 115/61 96 Room Air* 0 21 05/22/24 16:41 64 17 134/76 96 Room Air* 0 21 05/22/24 14:19 97.9 66 20 161/89 99 Room Air 0 14:15 The patient was assessed in Emergency Department triage room 2. She presents in distress, clutching her back and reporting excruciating, sharp shooting pain. Hemodynamically, she appears stable. Currently, we suspect left nephrolithiasis. A CT scan of the abdomen and pelvis will be ordered to exclude hydronephrosis and to ascertain the size and location of the stone. In a meantime, we will give Toradol and Zofran to ease pain and nausea. Additionally, we will request basic laboratory tests, including a CBC, BMP, and urinalysis, to evaluate the need for emergency treatment or potential inpatient admission. The patient will be closely monitored. Medical Decision Making [facility] Differential diagnosis: Left nephrolithiasis, Left renal cyst, Fibroids, Urinary tract infection Rationale: Tests considered and ordered secondary to shared decision making include: Previous outside records reviewed: Old ER visits. Risk of complication and/or morbidity or mortality of patient management: None Medications-Per medication reconciliation Need for hospitalization: Patient does not meet criteria for hospitalization. Need for emergency major/minor surgery: No There are no social concerns with this patient. Prescription drug management Prescriptions will include symptomatic care Patient's prior external medical records from other ER visits were reviewed by me as indicated. Prior testing and results from previous visits were reviewed. Prior tests were taken into account with medical decision making and resource utilization, independent historian/historians were used to obtain complete medical history. I independently interpreted the test that were performed, results were reviewed by me and considered findings on radiology if ordered. DX & DISP Disposition: Discharge Departure Impression: Primary Impression: Left lumbar pain Additional Impressions: Renal cyst, left, Fibroids, Urinary tract infection Condition: Stable Scripts Acetaminophen with Codeine (Acetaminophen-Cod #3 Tablet) 300 Mg-30 Mg Tablet 1 TAB PO Q6HPRN PRN for pain for 5 Days, #20 TAB 0 Refills Prov: PARESH GAMBLE DO 05/22/24 Cephalexin (Cephalexin) 500 Mg Tablet 1 TAB PO BID for 7 Days, #14 TAB 0 Refills Prov: RENAY CASTRO MD 05/22/24 Naproxen (Naproxen) 500 Mg Tablet 1 TAB PO BID for pain for 10 Days, #20 TAB 0 Refills Prov: RENAY CASTRO MD 05/22/24 Additional Instructions: There are no signs of kidney stones on your workup. This is likely musculoskeletal type pain. Your blood work (CBC, BMP) unremarkable. The urinalysis does show some bacteria consistent with a urinary tract infection. Start taking Naproxen 500 mg twice daily as needed for pain. I have given you a prescription. I have prescribed Tylenol with codeine to use for severe pain. Use as needed. Hydration is enriquez:Drink copious amounts of fluids throughout the day to dilute urine and help pass stones. Monitor your urine: Pay attention to the color and frequency of your urination, and contact your doctor if you notice significant changes. Dietary modifications:Reduce salt intake: Limit processed foods and avoid adding extra salt to meals. Manage oxalate intake: Depending on your stone type, you might need to limit foods like spinach, nuts, chocolate. Visit the nearest emergency department or call 911 should you experience worsening of the symptoms. Please follow up with your primary doctor regarding your recent visit. Referrals: SELF,REFERRAL (PCP) I have reviewed, & agreed with my scribe's, documentation. I have reviewed the case, and I agree with, Diagnosis and Plan I have examined patient, & reviewed all documents, & agreed W/ the Diagnosis, and Plan I performed a substantive portion of the visit. I have reviewed and personally made and approve the management plan that is documented in the notes by myself with MARY ALICE/resident. I acknowledged full responsibility for the patient's management plan. RENAY CASTRO MD May 22, 2024 14:17 PARESH GAMBLE DO May 22, 2024 17:49
[2024-05-22 14:19] VITALS: TEMP 97.8
[2024-05-22 14:50] LABS: APPEARANCE,URINE CLEAR (CLEAR); BILIRUBIN,URINE NEGATIVE (NEGATIVE); COLOR,URINE COLORLESS (YELLOW); GLUCOSE, URINE (UA) NEGATIVE (NEGATIVE); KETONES,URINE NEGATIVE (NEGATIVE); LEUKOCYTE ESTERASE ,URINE 250 Leu/uL (NEGATIVE); NITRATE,URINE NEGATIVE (NEGATIVE); OCCULT BLOOD,URINE NEGATIVE (NEGATIVE); PH,URINE 6.5 (5.0-8.0); PROTEIN,URINE NEGATIVE (NEGATIVE); UROBILINOGEN,URINE 0.2 mg/dL (0.2-1.0)
[2024-05-22 14:51] LABS: ADD UA MICROSCOPIC YES
--- NOTE | 2024-05-22 14:58 | HMCIMG ---
CT ABDOMEN/PELVIS W/O CONTRAST HISTORY: Back pain COMPARISON: 01/13/2022 TECHNIQUE: Multiple sequential axial images of the abdomen and pelvis were obtained from the dome of the diaphragm through symphysis pubis. Patient was not given contrast through intravenous route. Oral contrast was not given. FINDINGS: No pleural effusion is seen bilaterally. There is no evidence of parenchymal disease or pulmonary nodule of the visualized lower lungs. Degenerative changes of the thoracolumbar spine are present. The heart is not enlarged. Postcholecystectomy changes are seen. The liver, spleen, adrenal glands and pancreas are unremarkable. There is left renal atrophy. There is no evidence of hydronephrosis bilaterally. Subcentimeter left renal cyst is seen. There are multiple left renal pelvic stones with the largest measuring 6.2 mm. There is fibroid in the posterior aspect of the uterus measuring 6 cm. Fecal material is seen in the colon. There are normal size retroperitoneal and mesenteric lymph nodes. No ascites is seen. Atherosclerotic changes are present. Pelvic sidewalls are symmetric bilaterally. Bladder is well distended without wall thickening. IMPRESSION: 1. There is left renal atrophy. There is no evidence of hydronephrosis bilaterally. Subcentimeter left renal cyst is seen. There are multiple left renal pelvic stones with the largest measuring 6.2 mm. There is fibroid in the posterior aspect of the uterus measuring 6 cm. Fecal material is seen in the colon. CT was performed with one or more following dose reduction techniques: automated exposure control, adjustment of the mA and kv according to patient's size, or use of a iterative reconstruction technique.
[2024-05-22 15:10] LABS: BACTERIA,URINE RARE /HPF (None Seen); RBC,URINE 0-1 /HPF (0-1); SQUAMOUS EPITHELIAL CELL,UR RARE /HPF (0-2)
[2024-05-22] MEDS: cefTRIAXone 1G VIAL IVPB ONE (16:26)
[2024-05-22] MEDS: ondanSETRON 4MG INJ IVP ONE (16:27)
[2024-05-22] MEDS: ketOROlac 15MG/ML VIAL (15MG/ML) IM ONE (16:27)
[2024-05-22] MEDS: hydroMORPHone 1 MG INJ IVP ONE (16:31)
--- NOTE | 2024-05-22 16:41 | NUR ---
PLACED PT ON MONITOR
[2024-05-22 16:54] LABS: BASOPHILS # (AUTO) 0.06 K/uL (0.00-0.20); BASOPHILS % (AUTO) 0.8 % (0.0-5.0); EOSINOPHILS # (AUTO) 0.42 K/uL (0.00-0.70); EOSINOPHILS % (AUTO) 5.3 % (0.0-8.0); HEMATOCRIT 44.7 % (36-48); IMMATURE GRANULOCYTE ABSOLUTE 0.02 K/uL (0-1); LYMPHOCYTES # (AUTO) 2.2 K/uL (1.0-4.8); LYMPHOCYTES % (AUTO) 27.5 % (21.0-51.0); MEAN CORPUSCULAR HGB CONC 32.7 g/dL (32.0-36.0); MEAN CORPUSCULAR VOLUME 94.9 fL (79-99); MONOCYTES # (AUTO) 0.6 K/uL (0.1-1.0); MONOCYTES % (AUTO) 7.3 % (3.0-13.0); NEUTROPHILS # (AUTO) 4.6 K/uL (1.8-7.7); NEUTROPHILS % (AUTO) 58.8 % (40.0-77.0); PLATELET COUNT (AUTO) 263 K/uL (130-400); RED BLOOD CELL COUNT(AUTO) 4.71 MIL/uL (4.00-5.50); RED CELL DISTRIBUTION WIDTH 13.7 % (11.0-15.5); WHITE BLOOD COUNT (AUTO) 7.9 K/uL (4.8-10.8)
[2024-05-22] MEDS ORDERED: 0.9% NACL 500ML IV.SOLN 500 ML IV ONE (17:00)
[2024-05-22] MEDS ORDERED: NAPR-1194 PO (17:01)
[2024-05-22] MEDS ORDERED: CEPH500T PO (17:07)
[2024-05-22] MEDS ORDERED: ACET-2079 PO (17:49)
[2024-05-22 17:56] LABS: CREATININE 0.7 mg/dL (0.5-1.0); POTASSIUM 4.1 mmol/L (3.5-5.1)
[2024-05-22 19:15] VITALS: BP 122/71; PULSE 55; RESP 17; O2SAT 96
== END 2024-05-22 19:38 | disposition home or self-care (01) ==
LOC: EDH 13:47
DX: M54.50 Low back pain, unspecified (principal); N28.1 Cyst of kidney, acquired; D25.9 Leiomyoma of uterus, unspecified; N39.0 Urinary tract infection, site not specified; Z88.2 Allergy status to sulfonamides; Z90.49 Acquired absence of other specified parts of digestive tract
CPT/HCPCS: 99285; 74176; 96374; 96375; 80048; 85025; 87086 ×2; 87186; 81001; 36415; 96372; J1885; J1171; J0696; J2405